=== PATIENT | male | born 1985 | race Caucasian/White ===

== ENCOUNTER 2022-07-25 10:53 | Outpatient (REF) | payer BC, SELFPAY ==
[2022-07-26 13:33] LABS: Lyme Abs Screen <0.90 index
== END 2022-07-25 10:54 | disposition home or self-care (01) ==
LOC: HO.WFDLDS 10:53
PROVIDERS: Visit Provider Nurse Practitioner Family
DX: A69.20 Lyme disease, unspecified (principal)
CPT/HCPCS: 36415; 86617; 86618